=== PATIENT | female | born 1995 | race Caucasian/White ===

== ENCOUNTER 2021-02-11 22:18 | Emergency (ER) | payer OTHER ==
[~2021-02-11] VITALS: Ht 157.5 cm; Wt 95.3 kg
[2021-02-11 22:38] VITALS: BP 135/80
[2021-02-11] MEDS ORDERED: FLUORESCEIN SODIUM OPHTH 1 EA STRIP ONE (22:55)
[2021-02-11] MEDS ORDERED: TETRAcaine 5 ML BOTTLE EACHEYE ONE (23:00)
[2021-02-11] MEDS ORDERED: FLUORESCEIN SODIUM OPHTH 1 EA STRIP OP ONE (23:00)
[2021-02-11] MEDS ORDERED: KETO10TA2 PO (23:44)
== END 2021-02-12 | disposition home or self-care (01) ==
LOC: ER 22:22
DX: Z77.098 Contact with and (suspected) exposure to other hazardous, chiefly nonmedicinal, chemicals (principal); H57.89 Other specified disorders of eye and adnexa